=== PATIENT | female | born 1990 | race Two or more races ===

== ENCOUNTER 2024-05-26 13:37 | Emergency (ER) | payer MEDICAID, SELFPAY ==
[2024-05-26 13:38] VITALS: BMI 39.4
[2024-05-26 13:53] VITALS: BP 139/83; PULSE 76; RESP 20; TEMP 36.7; O2SAT 97
--- NOTE | 2024-05-26 14:05 | XR_ITS ---
Examination: CT abdomen and pelvis without contrast. Coronal 3-D reconstructions. Sagittal 2-D reconstructions. Date and time of exam:May 26, 2024 1603 hours INDICATIONS: Onset lower pelvic pain beginning 3 hours ago CTDI: vol (mGy): 13.3 DLP: (mGycm): 768 Technique: Axial images of the abdomen have been obtained, 3 mm slice thickness Intravenous contrast material has not been administered. Low dose protocols were performed. One or more of the following dose reduction techniques were used; automated exposure control, adjustment of the mA and/or KV according to patient size, use of iterative reconstruction technique. Findings: Fatty infiltration throughout the liver, no focal liver or splenic lesion Cholelithiasis No pancreatic or adrenal mass Moderate bilateral renal parenchymal scar formation 2 mm calculus lower pole right kidney Aorta normal size 8mm fat-containing umbilical hernia Normal appendix No bowel obstruction Intrauterine device satisfactory position No pelvic mass Urinary bladder intact IMPRESSION: Moderate bilateral renal parenchymal scar formation 2 mm nonobstructing lower pole right renal calculus No hydronephrosis or ureteral calculi Normal appendix
--- NOTE | 2024-05-26 14:05 | XR_ITS ---
Examination: Pelvic ultrasound, transabdominal, complete Technique: Transabdominal ultrasound of the pelvis performed using grayscale imaging Date and time of exam: May 26, 2024 1534 hours INDICATIONS: Pelvic pain beginning 3 hours ago FINDINGS: Uterus 7.1 cm intrauterine device satisfactory position Endometrial stripe 0.8 cm Right ovary 2.7 cm arterial flow small follicles Left ovary 3.4 cm arterial flow IMPRESSION: Intrauterine device satisfactory position No uterine or adnexal mass
--- NOTE | 2024-05-26 14:05 | PD.EDRME ---
Rapid Medical Screening Exam RME Arrival date/time: 05/26/24 13:37 33-year-old female presents emergency department complaints of pelvic pain abdominal pain which began 2 hours ago Chief Complaint: Abdominal Pain Time Seen by Provider: 05/26/24 13:52 Vital signs: Vital Signs Temperature 98.0 F 05/26/24 13:53 Pulse Rate 76 05/26/24 13:53 Respiratory Rate 20 05/26/24 13:53 Blood Pressure 139/83 H 05/26/24 13:53 Pulse Oximetry (%) 97 05/26/24 13:53 Oxygen Delivery Method Room Air 05/26/24 13:53
[2024-05-26 15:01] LABS: Collection Type, Urine Clean Catch
[2024-05-26 15:09] LABS: Basophils % (Auto) 0 % (0-2.5); Eosinophils # (Auto) 0.1 Thou/mm3 (0.0-0.5); Eosinophils % (Auto) 1 % (0-10); Hematocrit 38.5 % (36.0-46.0); Hemoglobin 13.3 g/dL (12.0-16.0); Immature Granulocytes % (Auto) 0 % (0-0); Immature Granulocytes Auto 0.03 Thou/mm3 (0.00-0.00); Lymphocytes # (Auto) 1.8 Thou/mm3 (1.0-4.8); Lymphocytes % (Auto) 17 % (10-50); Mean Corpuscular HGB Conc 34.5 g/dl (31.0-37.0); Mean Corpuscular Hemoglobin 30.6 pg (25.0-35.0); Mean Corpuscular Volume 89 fL (80-100); Monocytes # (Auto) 0.5 Thou/mm3 (0.0-0.8); Monocytes % (Auto) 5 % (0-12); Neutrophils # (Auto) 7.7 Thou/mm3 (1.8-7.7); Neutrophils % (Auto) 76 % (37-80); Nucleated Red Blood Cell % 0 /100 WBC (0); Platelet Count 290 Thou/mm3 (140-440); RDW Standard Deviation 38.3 fL (36.4-46.3); Red Blood Count 4.34 Miln/mm3 (4.00-5.20); White Blood Count 10.1 Thou/mm3 (3.6-11.0)
[2024-05-26 15:26] LABS: Alanine Aminotransferase 15 U/L (10-49); Albumin, Serum 4.4 gm/dL (3.5-5.0); Albumin/Globulin Ratio 1.3 (1.2-2.2); Alkaline Phosphatase 104 U/L (46-116); Anion Gap 7 (7-16); Aspartate Amino Transferase 16 U/L (0-34); BUN/Creatinine Ratio 19 Ratio (12-20); Bilirubin,Total 0.7 mg/dL (0.3-1.2); Blood Urea Nitrogen 15 mg/dL (9-23); Calcium 9.3 mg/dL (8.3-10.6); Calcium (Corrected) 9.3 mg/dL (8.5-10.1); Carbon Dioxide 27.8 mMol/L (20.0-31.0); Chloride 106 mMol/L (98-107); Creatinine (Component) 0.8 mg/dL (0.6-1.3); Estimated Creatinine Clearance 118.8 mL/min (>60); Globulin 3.5 gm/dL (2.3-3.5); Glucose 123 mg/dL (74-106); Lipase 42 U/L (12-53); Osmolality,Calculated 283 (275-295); Potassium 3.7 mMol/L (3.4-5.1); Sodium 141 mMol/L (136-145); Total Protein 7.9 gm/dL (5.7-8.2); eGFR > 60 See Note
[2024-05-26 15:39] LABS: HCG Qualitative,Urine Negative
[2024-05-26 15:40] LABS: Bilirubin,Urine Negative (Negative); Blood,Urine 2+ (Negative); Clarity,Urine Clear (Clear/Hazy); Color,Urine Yellow (Lt Yel-Yel); Culture Indicated,Urine Not Indicated; Glucose, Urine Negative (Negative); Ketones,Urine Negative (Negative); Leukocyte Esterase,Urine Negative (Negative); Nitrite,Urine Negative (Negative); PH,Urine 5.5 (5.0-7.0); Protein,Urine Trace (Neg - Trace); RBC,Urine 7 /hpf (0-3); Specific Gravity,Urine 1.034 (1.001-1.035); Squamous Epithelial Cell,Urine 3 /hpf (0-5); Urobilinogen,Urine Negative mg/dL (0.0-1.0); WBC,Urine 2 /hpf (0-5)
--- NOTE | 2024-05-26 19:00 | PD.EDADULT ---
ED General RME/HPI General Chief complaint: Abdominal Pain Stated complaint: LOWER ABD PAIN X2HR AND LIGHTHEADEDNESS Time Seen by Provider: 05/26/24 13:52 Arrival date/time: 05/26/24 13:37 CC: Low center abdominal pain HPI similar to cramping onset approximately 6 hours ago denies any nausea vomiting. No prior history of similar events. States that she has vaginal discharge when she placed an IUD but that been going on for 7 months. Denies any chest pain shortness of breath fever chills nausea no OTC medicines taken. Patient started weight loss shots once a week 2 weeks ago. No other complaints RME / HPI RME / HPI narrative: 05/26/24 13:37 33-year-old female presents emergency department complaints of pelvic pain abdominal pain which began 2 hours ago Related Data Previous Rx's ?Medication ?Instructions ?Recorded hydrocodone 5 mg-acetaminophen 325 1 tab PO TID #10 tabs 12/01/ mg tablet ([place]) meloxicam 7.5 mg tablet 7.5 mg PO QDAY #10 tabs 05/26/24 Allergies Allergy/AdvReac Type Severity Reaction Status Date / Time avocado Allergy Intermediate SWELLING Verified 05/26/24 13:40 banana Allergy Intermediate Swelling Verified 05/26/24 13:40 of Lip/Tongue/Throat Review of Systems Review of Systems Narrative Review of Systems: GEN: No fever, no chills, no weight loss EYES: No discharge, no visual changes, no pain HEENT: No ear pain, no congestion, no sore throat PULM: No shortness of breath, no cough, no congestion CV: No chest pain, no dyspnea on exertion, no palpitations GI: No nausea, no vomiting, no diarrhea, + pain, no constipation : No frequency, no urgency, no dysuria MUSC/SKEL: No joint pain, no back pain SKIN: No rash PSYCH: No hallucinations, no depression HEME/LYMPH: No easy bleeding or bruising tendencies NEURO: No weakness, no headache Past Medical History Past Medical History NEUROLOGIC: Negative Neurological Disorders CARDIAC: Negative Cardiac Disorders or Congestive Heart Failure RESPIRATORY: Negative Chronic Obstructive Pulmonary Disease (COPD) GASTROINTESTINAL: Negative Gastrointestinal Disorders, Hepatitis or Colorectal Cancer GENITOURINARY: Negative Genitourinary Disorders, Renal Disease or Prostate Cancer REPRODUCTIVE: Negative Breast Cancer or Testicular Cancer MUSCULOSKELETAL: Negative Musculoskeletal Disorders or Bone Cancer ENDOCRINE: Negative Endocrine Disorders, Diabetes Mellitus Type 1 or Diabetes Mellitus Type 2 HEMATOLOGIC: Negative Blood Disorders OTHER HISTORY: Negative Autoimmune Disease, Blood Transfusions, Blood Transfusion Reaction, Anesthesia Reactions, Organ Transplant, Chemotherapy, Radiation Therapy, Hyperbaric Therapy, MRSA, VRSA, Vancomycin-Resistant Enterococci, Human Immunodeficiency Virus (HIV), Chicken Pox, Measles, Mumps, Rubella (Luxembourgish Measles), Pertussis, Clostridium Difficile, Breast Cancer, Cervical Cancer, Colorectal Cancer, Lung Cancer, Ovarian Cancer, Prostate Cancer or Testicular Cancer Family History FAMILY HISTORY: Negative Family Psychiatric Problems, Family Respiratory Disorders, Family Cardiac Disorders, Family Gastrointestinal Problems, Family Cancer, Family Surgery or Family Anesthesia Reaction Surgical History SURGICAL: Negative Cardiac Surgery, Endocrine Surgery, Ear Surgery, Abdominal Surgery, Nephrectomy, Joint Replacement, Neurologic Surgery, Mastectomy, Section or Organ Transplant Social History SMOKING STATUS: Never smoker ED Exam Narrative Physical exam: [General: Obese not in any acute distress Head normocephalic HEENT: Eyes pupils are PERRLA EOMs are intact. All other subsystems within within acceptable limits Neck is supple nontender Chest equal chest rise nontender to palpation Respiratory: Clear to auscultation no wheezes crackles or rubs CV: Rate rhythm is regular no murmurs rubs or clicks Abdomen is distended secondary to body habitus soft, mild lower abdomen tenderness no reflexive guarding no rebound tenderness. Back: No CVA tenderness no spinous process tenderness from cervical spine thoracic and lumbar spine Skin: Intact no petechiae rash induration ulceration or crepitus Extremities: Moving all extremity against resistance cap refill less than 2 seconds neurosensory intact Neuro: Awake alert oriented x3 Glascow coma 15 no focal deficits] Course Quality Measures none Orders Category Date Time Status CT abdomen pelvis wo con Stat Exams 05/26/24 14:05 Completed US pelvic complete Stat Exams 05/26/24 14:05 Completed CBC Stat Lab 05/26/24 14:46 Completed Comprehensive Metabolic Panel Stat Lab 05/26/24 14:46 Completed HCG Qualitative,Urine Stat Lab 05/26/24 14:55 Completed Lipase Stat Lab 05/26/24 14:46 Completed UA, C/S IF [Urinalysis, C/S if Indicated] Stat Lab 05/26/24 14:55 Completed Ketorolac Inj [Toradol Inj] Med 05/26/24 18:59 Once 15 mg IM X1 ONE Vital Signs Vital signs: Vital Signs Temperature 98.0 F 05/26/24 13:53 Pulse Rate 76 05/26/24 13:53 Respiratory Rate 20 05/26/24 13:53 Blood Pressure 139/83 H 05/26/24 13:53 Pulse Oximetry (%) 97 05/26/24 13:53 Oxygen Delivery Method Room Air 05/26/24 13:53 [facility] Patient data External records reviewed:: [facility] previous records Clinical information provided by:: none Social determinants that could affect healthcare access:: none Patient has the following chronic illnesses:: Obesity How is presenting disease/condition affected by chronic disease/condition?: uneffected by Evaluation data The following diagnostics were reviewed and interpreted by me:: lab results and radiology exam(s) Lab and/or radiology exams considered but not ordered:: CBC shows no acute leukocytosis anemia thrombocytopenia CMP shows no electrolyte imbalances other than a mildly elevated glucose at 123 no renal impairment transaminitis or T. bili elevation Urine has 2+ blood 3+ epithelia scales no bacteria no leukocyte esterase. Ultrasound of the pelvis shows the patient has an IUD in satisfactory position Abdomen CT as interpreted by me read by radiology as a fatty liver umbilical hernia no other acute finding as interpreted by me and read by radiology. Interpretation Summary: Low abdominal pain of unknown etiology. Patient needs to find if there is a relationship between this and the diet shots she is receiving. Patient also needs to find out from LADLE OPERATOR why she has vaginal discharge each time she inserts the IUD. And no vaginal discharge when the IUD is not in place. Patient will be discharged home with abdominal pain Medications Medications considered but not ordered:: None Medication administrations:: Medication Administration History Ketorolac Tromethamine (Ketorolac Inj 60 Mg/2 Ml Vial) 15 mg IM X1 ONE Stop: 05/26/24 19:00 None Consultations Consultation(s) initiated? (list below): No Diagnosis Differential Diagnosis ED Complaint MDM: Ovarian cyst uterine fibroid IUD malfunction Most likely diagnosis given after review of the tests above:: Low center abdominal pain Admission Indicated Admission indicated?: not indicated Explain why admission is indicated or not indicated:: Stable for discharge Admission Request Was there a request for admission?: No Disposition Plan Disposition Plan: Discharge Discharge Attestation Discharge Attestation: The patient and all family members were given an opportunity to ask questions and understood the discharge instructions. Discharge instructions specifically effects, indications for sooner follow up or return to the emergency department, and the expected course of current diagnosis. Patient condition: Stable Medical Decision Making Differential Diagnosis Differential Diagnosis: Ovarian cyst uterine fibroid IUD malfunction Lab Data 05/26/24 14:46 05/26/24 14:46 Labs: Lab Results 05/26/24 05/26/24 Range/Units 14:46 14:55 WBC 10.1 (3.6-11.0) Thou/mm3 RBC 4.34 (4.00-5.20) Miln/mm3 Hgb 13.3 (12.0-16.0) g/dL Hct 38.5 (36.0-46.0) % MCV 89 (80-100) fL MCH 30.6 (25.0-35.0) pg MCHC 34.5 (31.0-37.0) g/dl RDW Std Deviation 38.3 (36.4-46.3) fL Plt Count 290 (140-440) Thou/mm3 Neut % (Auto) 76 (37-80) % Lymph % (Auto) 17 (10-50) % Emmons % (Auto) 5 (0-12) % Eos % (Auto) 1 (0-10) % Baso % (Auto) 0 (0-2.5) % Neut # (Auto) 7.7 (1.8-7.7) Thou/mm3 Lymph # (Auto) 1.8 (1.0-4.8) Thou/mm3 Emmons # (Auto) 0.5 (0.0-0.8) Thou/mm3 Eos # (Auto) 0.1 (0.0-0.5) Thou/mm3 Baso # (Auto) 0.0 (0.0-0.2) Thou/mm3 Immature Gran # (Auto) 0.03 H (0.00-0.00) Thou/mm3 Absolute Nucleated RBC 0.00 (0.00-0.00) Thou/mm3 Immature Gran % 0 (0-0) % Nucleated RBC % 0 (0) /100 WBC Sodium 141 (136-145) mMol/L Potassium 3.7 (3.4-5.1) mMol/L Chloride 106 (98-107) mMol/L Carbon Dioxide 27.8 (20.0-31.0) mMol/L Anion Gap 7 (7-16) BUN 15 (9-23) mg/dL Creatinine 0.8 (0.6-1.3) mg/dL Estim Creat Clear Calc 118.8 (>60) mL/min eGFR > 60 (60 - ) See Note BUN/Creatinine Ratio 19 (12-20) Ratio Glucose 123 H (74-106) mg/dL Calculated Osmolality 283 (275-295) Calcium 9.3 (8.3-10.6) mg/dL Corrected Calcium 9.3 (8.5-10.1) mg/dL Total Bilirubin 0.7 (0.3-1.2) mg/dL AST 16 (0-34) U/L ALT 15 (10-49) U/L Alkaline Phosphatase 104 (46-116) U/L Total Protein 7.9 (5.7-8.2) gm/dL Albumin 4.4 (3.5-5.0) gm/dL Globulin 3.5 (2.3-3.5) gm/dL Albumin/Globulin Ratio 1.3 (1.2-2.2) Lipase 42 (12-53) U/L Ur Collection Type Clean Catch Urine Color Yellow (Lt Yel-Yel) Urine Clarity Clear (Clear/Hazy) Urine pH 5.5 (5.0-7.0) Ur Specific [place] 1.034 (1.001-1.035) Urine Protein Trace (Neg - Trace) Urine Glucose (UA) Negative (Negative) Urine Ketones Negative (Negative) Urine Blood 2+ A (Negative) Urine Nitrite Negative (Negative) Urine Bilirubin Negative (Negative) Urine Urobilinogen (Auto) Negative (0.0-1.0) mg/dL Ur Leukocyte Esterase Negative (Negative) Urine RBC 7 H (0-3) /hpf Urine WBC 2 (0-5) /hpf Ur Squamous Epith Cells 3 (0-5) /hpf Urine Bacteria None (None) Ur Culture Indicated? Not Indicated Urine HCG, Qual Negative Discharge Plan Plan Patient Disposition: HOME (Self Care) Patient condition on transfer: Stable Prescriptions/Referrals Prescriptions/Med Rec: New meloxicam 7.5 mg tablet 7.5 mg PO QDAY Qty: 10 0RF No Action hydrocodone-acetaminophen [[place]] 5-325 mg tablet 1 tab PO TID MDD 1 tab Qty: 10 0RF Referrals: Beka Montez MD [Primary Care Provider] - In 1 week Problem List Clinical Impression: Lower abdominal pain Patient/Caregiver Discharge Instructions Education Materials: Abdominal Pain Additional Instructions: Follow-up with your LADLE OPERATOR to ask about your IUD and discharge, follow-up with your PCP regarding your diet shots to see if these are causing your abdominal pain. Print Language: Greenlandic Stand Alone Forms: Zenaida Award Info., Patient Portal Info Letter, Work/School Release PA/DRAWSTRING KNOTTER Supervising Physician PA/DRAWSTRING KNOTTER Supervising Physician: Lani Chavira ENP
[2024-05-26] MEDS: KETOROLAC INJ 60 MG/2 ML VIAL 15 MG IM (19:16)
== END 2024-05-26 19:22 | disposition home or self-care (01) ==
PROVIDERS: Nurse Practitioner Primary Care; Emergency Provider Emergency Medicine; PCP Family Medicine
DX: R10.30 Lower abdominal pain, unspecified (principal); R10.2 Pelvic and perineal pain; Z97.5 Presence of (intrauterine) contraceptive device
CPT/HCPCS: 36415; 74176; 76856; 80053; 81001; 81025; 83690; 85025; 96372; 99284; J1885

== ENCOUNTER 2024-12-17 09:37 | Outpatient (AMB) | payer MEDICAID, SELFPAY ==
[2024-12-17 09:52] VITALS: BP 124/81; PULSE 78; RESP 16; TEMP 36.4; O2SAT 98; BMI 38.2
--- NOTE | 2024-12-17 09:52 | OBCLNT_ITS ---
Vital Signs 12/17/24 09:52 Height 1.63 m Height Method Stated Weight 101.661 kg Weight Measurement Method Standing Scale BMI 38.2 BP 124/81 Blood Pressure Source Automatic Cuff Blood Pressure Location Left Upper Arm Position Sitting Respiration 16 Pulse 78 Pulse Source Monitor Temp 97.6 F Temp Source Oral Pulse Oximetry (%) 98 Oxygen Delivery Method Room Air Allergies/Home Meds Allergies & Medications Allergies avocado Allergy (Intermediate, Verified 12/17/24 09:54) SWELLING banana Allergy (Intermediate, Verified 12/17/24 09:54) Swelling of Lip/Tongue/Throat Medication Reconciliation meloxicam 7.5 mg tablet 7.5 mg PO QDAY #10 tabs 05/26/24 [Rx Confirmed 12/17/24] aspirin 81 mg tablet,delayed release (Adult Aspirin Regimen) 81 mg PO QDAY #60 tabs 12/17/24 [Rx] ondansetron HCl 8 mg tablet 8 mg PO Q8H #30 tabs 12/17/24 [Rx] Intake Visit Data Collection New Patient or Established: Established Patient (seen at [facility] within 3 years) Reason for Visit:: INITIAL CARE Seen by Clinical Staff ONLY (RN/MA): No Alley Worker Required: No Do You Feel Safe at Home: Yes Authorities Contacted: N/A PCP or OBGYN visit in last 3 months: Yes Hx Now: Yes Are you currently on any form of Control: No Pain Present Currently: Yes Pain Location: Abdomen (LOWER ) Pain Scale Used: Kowalski-Sheffield/Numerical Pain scale:: 5 Smoking Status Smoking Status: Never smoker Immunizations Flu Vaccine in the Last 12 Months: No Flu Vaccine Exclusion Criteria: No Exclusion Criteria Questionnaires Covid-19 Vaccine Questionnaire Has patient been vacinated for Covid-19 Have you been vacinated for Covid-19: Yes PHQ-9 PHQ-2 Over the last 2 weeks, how often have you been bothered by any of the following problems? 1. Little interest or pleasure in doing things: not at all 2. Feeling down, depressed, or hopeless: not at all Total score: 0 PHQ-9 3. Trouble falling or staying asleep, or sleeping too much: Not at all 4. Feeling tired or having little energy: Not at all 5. Poor appetite or overeating: Not at all 6. Feeling bad about yourself - or that you are a failure or have let yourself or your family down: Not at all 7. Trouble concentrating on things, such as reading the newspaper or watching television: Not at all 8. Moving or speaking so slowly that other people could have noticed? - Or the opposite - being so fidgety or restless that you have been moving around a lot more than usual: not at all 9. Thoughts that you would be better off or of hurting yourself in some way: Not at all Total score: 0 Source: Developed by Drs. Vipin Valadez, Sherry Tolentino, Curt Lemos and colleagues, with an educational rhianna from [employer]. Depression screen completed yes Social History Living Situation History Lives With: Family Housing: House Tobacco History Smoking Status: Never smoker Second Hand Smoke Exposure: No Alcohol History Alcohol Intake: Never Domestic Abuse History Do You Feel Safe at Home: Yes History of Present Illness HPI Narrative 34-year-old 3 para 2 for OBI. Patient has a history of using a Mirena that she removed in July. She reports no dates. She has regular menses. She thinks maybe August 27, 2024 was her LMP. And that would give her an EDC of 06/04/2025. History of anxiety no meds. She reports that she has a lot of nausea and vomiting. Denies any other medical health issues. Denies social habits. Denies surgeries. She does not feel movement. 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 Patient has no dates she thinks maybe August 27. She was using a Mirena and had a regular. And her Mirena was removed in July. History of anxiety no meds. Patient denies social habits. Denies surgery. Denies chronic illness. She denies any bleeding, leaking or contractions. Baby felt about 16 weeks. Schedule OB sono for dating with Dr. Romo. I scheduled an urgent. Continue vitamins. Discussed SAB precautions. We did OB panel with NIPT and carrier screen today. Discussed diet and weight gain. And I advised patient is start low-dose baby aspirin so I will order that. Return in 4 weeks for OB check Menstrual History Menstrual reliability: unknown Flow: heavy Menstrual regularity: irregular Monthly: No Age at menarche: 14 On control pills at conception: No Associated symptoms (LMP): Reports nausea, vomiting, fatigue and breast tenderness OB History : 3 Para: 2 # of Living Children: 2 Delivery History 1st : Child's name: AB date: 02/12/15 sex: male Gestational age at delivery (weeks): 38 Delivery type: vaginal Delivery complications: NONE History of depression before or after : No 2nd : Child's name: PHILIP date: 11/10/17 sex: female Gestational age at delivery (weeks): 38 Delivery type: vaginal Delivery complications: NONE History of depression before or after : No Infection History & Risk Evaluation History of STDs: none Genetic Screening & History Genetic Screening/Teratology Counseling - Includes patient, baby's father, or anyone in either family with: 1. Patient's age 35 years or older as of estimated date of delivery: No 2. Thalassemia (Amharic, Mauritanian, Mediterranean, or Background); MCV less than 80: No 3. Neural Tube Defect (Meningomyelocele, Spina Bifida, or Anencephaly): No 4. Congenital Heart Defect: No 5. Down Syndrome: No 6. Maynor-Sachs (Ashkenazi Buddhist, Cajun, Czech Azerbaijani): No 7. Theresa Disease (Ashkenazi Buddhist): No 8. Familial Dysautonomia (Ashkenazi Buddhist): No 9. Sickle Cell Disease or Trait (): No 10. Hemophilia or other blood disorders: No 11. Muscular Dystrophy: No 12. Cystic Fibrosis: No 13. Pima's Chorea: No 14. Mental Retardation/Autism: No 15. Other inherited genetic or chromosomal disorder: No 16. Maternal Metabolic Disorder (EG,TYPE 1 Diabetes, PKU): No 17. Patient or baby's father had a child with defects not listed above: No 18. Recurrent loss or a stillbirth: No 19. Medications (including supplements, vitamins, herbs or otc drugs)/illicit/recreational drugs/alcohol since last menstrual period: No 20. Any other: No Infection History 1. Live with someone with TB or exposed to TB: No 2. Rash or viral illness since last menstrual period: No 3. Hepatitis B,C: No Other (see comments) Source: [employer] [place] [employer] Review of Systems Review of Systems Systems Reviewed: All systems reviewed, normal except as documented Constitutional Constitutional: Reports fatigue Gastrointestinal Gastrointestinal: Reports nausea and Reports vomiting Endocrine Endocrine: Reports fatigue Exam General Limitations: no limitations General Appearance: alert, in no apparent distress, comfortable, cooperative, healthy appearing, well developed and well groomed Head Head exam: atraumatic, normocephalic and normal inspection ENT ENT exam: Present normal exam, normal oropharynx and mucous membranes moist Chest Chest inspection: Present normal inspection and symmetric chest wall rise Resp Respiratory exam: Present normal lung sounds bilaterally Card Cardiovascular exam: Present regular rate, normal rhythm and normal heart sounds Abdominal Abdominal exam: Present soft and normal bowel sounds Psych Psychiatric exam: Present normal affect and normal mood Office Procedures OBC Clinic LOC & Office Proc's Nursing/Assessment Patient Status: Established Patient OB Clinic Nursing Assessment: Medication Reconciliation, Update PMH in EMR and Vital Signs OB Clinic Coordination of Care: Complex Care and Chronic Disease 1-5, Consent,r ecords obtained, informed consent, Education Simp Pt/Fam, 1 Ins Authorization, Lab and Imaging orders, Results/Orders obtained and Staff clarify orders Special Needs: Heart tones Established Patient Charge Established Patient Point Assignment: 150 Established Patient Point Charge: EP Level 4 (120-155) Assessment & Plan Diagnosis / Problem List (1) Encounter for supervision of high risk in second trimester, antepartum: Status: Acute (2) Obesity affecting in second trimester: Status: Acute Plan Schedule MFM sono as urgent with Dr. Romo. Because of no dates MSAFP. Discussed diet and weight. Will start on low-dose baby aspirin next visit. OB panel today with NIPT and carrier screen. Discussed SAB precautions. And continue prenatals. Return in 4 weeks OB check Additional Plan Follow Up: 4 Weeks (obc)
== END 2024-12-17 10:24 | disposition home or self-care (01) ==
LOC: HODSOBC 09:37
PROVIDERS: Supervising Provider Advanced Practice Midwife; Visit Provider Advanced Practice Midwife
DX: O09.892 Supervision of other high risk pregnancies, second trimester (principal); O99.212 Obesity complicating pregnancy, second trimester; Z3A.16 16 weeks gestation of pregnancy; Z91.018 Allergy to other foods
CPT/HCPCS: 99214; G0463

== ENCOUNTER 2025-01-14 09:38 | Outpatient (AMB) | payer MEDICAID, SELFPAY ==
--- NOTE | 2025-01-14 09:48 | OBCLNT_ITS ---
Vital Signs 01/14/25 09:49 Height 1.63 m Height Method Stated Weight 100.698 kg Weight Measurement Method Standing Scale BMI 37.9 BP 120/79 Blood Pressure Source Automatic Cuff Blood Pressure Location Right Upper Arm Position Sitting Respiration 18 Pulse 72 Pulse Source Monitor Temp 97.8 F Temp Source Temporal Artery Scan Pulse Oximetry (%) 96 Oxygen Delivery Method Room Air Allergies/Home Meds Allergies & Medications Allergies avocado Allergy (Intermediate, Verified 01/14/25 10:39) SWELLING banana Allergy (Intermediate, Verified 01/14/25 10:39) Swelling of Lip/Tongue/Throat Immunizations Immunizations Flu Vaccine in the Last 12 Months: No Flu Vaccine Exclusion Criteria: No Exclusion Criteria Care OB Visit Log OB Flowsheet Initial Weight: Not Recorded Date -?-?-?-?-?-?-?-?-?-?-?-?- EGA Weight BP Alb Glu CTX Pres Fundal ht FHR Mov Dilation Station Effacement Hx Notes Visit Note 12/17/24 -?-?-?-?-?-?-?-?-?-?-?-?- 16w 0d 101.661 kg 124/81 absent unknown 15 145 absent 34-year-old 3 para 2 for OBI. Patient has no dates she thinks maybe August 27. She was using a Mirena and had a regular. And her Mirena was removed in July. History of anxiety no meds. Patient denies social habits. Denies surgery. Denies chronic illness. She denies any bleeding, leaking or contractions. Baby felt about 16 weeks. Schedule OB sono for dating with Dr. Romo. I scheduled an urgent. Continue vitamins. Discussed SAB precautions. We did OB panel with NIPT and carrier screen today. Discussed diet and weight gain. And I advised patient is start low-dose baby aspirin so I will order that. Return in 4 weeks for OB check 01/14/25 -?-?-?-?-?-?-?-?-?-?-?-?- 20w 0d 100.698 kg 120/79 absent unknown 21 145 active Reports movement. Denies leaking or bleeding. Patient complains of backache that is worse when she goes to work. And increased cramps. She lifts over 30 pounds at work and she works 310-hour days walking a lot. She would like a note for light duty. Light duty given to patient. Advised Tylenol for backache . I ordered maternity girdle. Note given for light duty. Patient will call Dr. Romo's office to schedule MFM appointment. DU Calculator Estimated Delivery Date Method Current WG Current Estimate 06/03/25 LMP (Uncertain) 20w 0d Notes Visit Date: 01/14/25 Last Updated by: Elo Holbrook CNM OB panel: O+,abs-, rpr;;NR, rub imm, HBSAG-,HIV-,GC/CT-, UA-, NIPT/Carrier screen- Visit Date: 12/17/24 Last Updated by: Elo Holbrook CNM 34 yo . no dates/16 week size Office Procedures OBC Clinic LOC & Office Proc's Nursing/Assessment Patient Status: Established Patient OB Clinic Nursing Assessment: Medication Reconciliation, Update PMH in EMR and Vital Signs OB Clinic Coordination of Care: Complex Care and Chronic Disease 1-5, Education Complex Pt/Fam, Consent,records obtained, informed consent, Lab and Imaging orders, Results/Orders obtained and Staff clarify orders Special Needs: Heart tones Established Patient Charge Established Patient Point Assignment: 140 Established Patient Point Charge: EP Level 4 (120-155) Assessment & Plan Diagnosis / Problem List (1) Obesity affecting in second trimester: Status: Acute Qualifiers: Obesity type affecting : severe obesity due to excess calories Qualified Code(s): O99.212 - Obesity complicating , second trimester; E66.01 - Morbid (severe) obesity due to excess calories (2) Encounter for supervision of high risk in second trimester, antepartum: Status: Acute Plan Patient will follow-up with Dr. Romo's office for anatomy scan. Discussed labs and NIPT and carrier screens. Comfort measures for backache and cramping. Increase fluids. Ordered maternity girdle. Note for light duty return in 4 weeks OB check` Additional Plan Follow Up: 4 Weeks (obc)
[2025-01-14 09:49] VITALS: BP 120/79; PULSE 72; RESP 18; TEMP 36.6; O2SAT 96; BMI 37.9
== END 2025-01-14 10:24 | disposition home or self-care (01) ==
LOC: HODSOBC 09:38
PROVIDERS: Supervising Provider Advanced Practice Midwife; Visit Provider Advanced Practice Midwife
DX: O09.892 Supervision of other high risk pregnancies, second trimester (principal); O99.212 Obesity complicating pregnancy, second trimester; Z3A.20 20 weeks gestation of pregnancy; O99.891 Other specified diseases and conditions complicating pregnancy; M54.9 Dorsalgia, unspecified; Z91.018 Allergy to other foods
CPT/HCPCS: 99214; G0463

== ENCOUNTER 2025-02-11 09:41 | Outpatient (AMB) | payer MEDICAID, SELFPAY ==
[2025-02-11 09:50] VITALS: BP 127/78; PULSE 85; RESP 18; TEMP 36.2; O2SAT 98; BMI 37.0
--- NOTE | 2025-02-11 09:50 | OBCLNT_ITS ---
Vital Signs 02/11/25 09:50 Height 1.63 m Height Method Stated Weight 98.43 kg Weight Measurement Method Standing Scale BMI 37.0 BP 127/78 Blood Pressure Source Automatic Cuff Blood Pressure Location Left Upper Arm Position Sitting Respiration 18 Pulse 85 Pulse Source Monitor Temp 97.2 F Temp Source Oral Pulse Oximetry (%) 98 Oxygen Delivery Method Room Air Allergies/Home Meds Allergies & Medications Allergies avocado Allergy (Intermediate, Verified 02/11/25 09:51) SWELLING banana Allergy (Intermediate, Verified 02/11/25 09:51) Swelling of Lip/Tongue/Throat Medication Reconciliation meloxicam 7.5 mg tablet 7.5 mg PO QDAY #10 tabs 05/26/24 [Rx Confirmed 02/11/25] aspirin 81 mg tablet,delayed release (Adult Aspirin Regimen) 81 mg PO QDAY #60 tabs 12/17/24 [Rx Confirmed 02/11/25] ondansetron HCl 8 mg tablet 8 mg PO Q8H #30 tabs 12/17/24 [Rx Confirmed 02/11/25] loratadine 10 mg disintegrating tablet (Claritin RediTabs) 10 mg PO QDAY PRN allergy symptoms #30 tabs 02/11/25 [Rx] Immunizations Immunizations Flu Vaccine in the Last 12 Months: No Flu Vaccine Exclusion Criteria: No Exclusion Criteria Care OB Visit Log OB Flowsheet Initial Weight: Not Recorded Date -?-?-?-?-?-?-?-?-?-?-?-?- EGA Weight BP Alb Glu CTX Pres Fundal ht FHR Mov Dilation Station Effacement Hx Notes Visit Note 12/17/24 -?-?-?-?-?-?-?-?-?-?--?-?- 16w 0d 101.661 kg 124/81 absent unknown 15 145 absent 34-year-old 3 para 2 for OBI. Patient has no dates she thinks maybe August 27. She was using a Mirena and had a regular. And her Mirena was removed in July. History of anxiety no meds. Patient denies social habits. Denies surgery. Denies chronic illness. She denies any bleeding, leaking or contractions. Baby felt about 16 weeks. Schedule OB sono for dating with Dr. Romo. I scheduled an urgent. Continue vitamins. Discussed SAB precautions. We did OB panel with NIPT and carrier screen today. Discussed diet and weight gain. And I advised patient is start low-dose baby aspirin so I will order that. Return in 4 weeks for OB check 01/14/25 -?-?-?-?-?-?-?-?-?-?-?-?- 20w 0d 100.698 kg 120/79 absent unknown 21 145 active Reports movement. Denies leaking or bleeding. Patient complains of backache that is worse when she goes to work. And increased cramps. She lifts over 30 pounds at work and she works 310-hour days walking a lot. She would like a note for light duty. Light duty given to patient. Advised Tylenol for backache . I ordered maternity girdle. Note given for light duty. Patient will call Dr. Romo's office to schedule MFM appointment. 02/11/25 -?-?-?-?-?-?-?-?-?-?-?-?- 24w 0d 98.43 kg 127/78 absent unknown 24 145 active Complains of increased allergy symptoms. Reports good movement. No contractions. No leaking or bleeding. However patient complains increased discomfort sometimes at work. 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 Increased back pain and pressure at work sometimes and complaints of coughing with allergies and losing urine and this kind makes her feel bad and work will not let her go home. Claritin 10 mg o rdered as needed. Comfort measures for allergies. labor precautions discussed. Third trimester labs ordered. I advised the use of a support product for pelvic discomfort. This and other comfort measures. Patient has an MFM appointment February 13. Return 4 weeks OB to DU Calculator Estimated Delivery Date Method Current WG Current Estimate 06/03/25 LMP (Uncertain) 24w 0d Notes Visit Date: 01/14/25 Last Updated by: Elo Holbrook CNM OB panel: O+,abs-, rpr;;NR, rub imm, HBSAG-,HIV-,GC/CT-, UA-, NIPT/Carrier screen-/ Visit Date: 12/17/24 Last Updated by: Elo Holbrook CNM 34 yo . no dates/16 week size Office Procedures OBC Clinic LOC & Office Proc's Nursing/Assessment Patient Status: Established Patient OB Clinic Nursing Assessment: Medication Reconciliation, Update PMH in EMR and Vital Signs OB Clinic Coordination of Care: Consent,records obtained, informed consent, Education Simp Pt/Fam, Lab and Imaging orders, Results/Orders obtained and Staff clarify orders Special Needs: Heart tones Established Patient Charge Established Patient Point Assignment: 110 Established Patient Point Charge: EP Level 3 (80-115) Assessment & Plan Diagnosis / Problem List (1) Obesity affecting in second trimester: Status: Acute Qualifiers: Obesity type affecting : severe obesity due to excess calories Qualified Code(s): O99.212 - Obesity complicating , second trimester; E66.01 - Morbid (severe) obesity due to excess calories Plan Comfort measures and maternity girdle recommended for back and pelvic pain. Discussed labor precautions. Or third trimester labs ordered. Follow- up with MFM on February 13. Discussed increasing fluids. Return in 4 weeks OB check Additional Plan Follow Up: 4 Weeks (obc)
== END 2025-02-11 10:20 | disposition home or self-care (01) ==
LOC: HODSOBC 09:41
PROVIDERS: Supervising Provider Advanced Practice Midwife; Visit Provider Advanced Practice Midwife
DX: O09.892 Supervision of other high risk pregnancies, second trimester (principal); O99.212 Obesity complicating pregnancy, second trimester; Z3A.24 24 weeks gestation of pregnancy
CPT/HCPCS: 99213; G0463